=== PATIENT | female | born 1960 | race African-American/Black ===

== ENCOUNTER 2018-05-08 06:21 | Inpatient (IN) | payer SELFPAY ==
[~2018-05-08] VITALS: Ht 165.1 cm; Wt 70.3 kg
[2018-05-08] VITALS (75 sets, daily range): BP systolic 49–195; BP diastolic 25–122
[2018-05-08] MEDS ORDERED: MIDAZOLAM HCL 50 MG in DEXTROSE 5% WATER 40 ML IV ONE (06:30)
[2018-05-08] MEDS ORDERED: FENTANYL CITRATE/PF 50MCG/ML 2ML VIAL IV ONE (06:30)
[2018-05-08] MEDS ORDERED: NOREPINEPHRINE 4 MG in DEXT 5% WATER 250 ML IV STA (07:27)
[2018-05-08] MEDS ORDERED: SODIUM CHLORIDE 0.9% 1,000 ML IV ONE (07:27)
[2018-05-08] MEDS ORDERED: NOREPINEPHRINE 4MG/250ML PMX 250 ML IV PRN ×2 (07:33)
[2018-05-08 07:42] LABS: BASOPHILS % 0.5 % (0.0-2.0); EOSINOPHILS % 1.2 % (0.0-5.0); HEMATOCRIT. 36.6 % (36.0-48.0); HEMOGLOBIN. 11.3 g/dL (12.0-16.0); LYMPHOCYTES % 33.4 % (20.0-50.0); MEAN CORPUSCULAR HEMOGLOBIN 27.8 pg (28.0-32.0); MEAN PLATELET VOLUME 9.2 fl (7.4-10.4); MONOCYTES % 1.2 % (2.0-8.0); NEUTROPHILS % 63.7 % (40.0-76.0); PLATELET 114 x1000/uL (130-400); RED BLOOD CELL COUNT 4.06 mill/uL (4.2-5.4); RED CELL DISTRIBUTION WIDTH 14.4 % (11.6-14.6)
[2018-05-08 07:47] LABS: CLARITY URINE CLEAR (CLEAR); COLOR URINE YELLOW (YELLOW); KETONES URINE NEGATIVE (NEGATIVE); LEUKOCYTE ESTERASE URINE NEGATIVE (NEGATIVE); NITRITE URINE NEGATIVE (NEGATIVE); OCCULT BLOOD URINE NEGATIVE (NEGATIVE); PROTEIN URINE 1+ (NEGATIVE); SPECIFIC GRAVITY URINE 1.021 (1.005-1.030)
[2018-05-08 07:49] LABS: INR 1.1; PROTHROMBIN TIME 10.8 sec (9.1-11.1)
[2018-05-08 07:52] LABS: CHLORIDE 107 mEq/L (98-107)
[2018-05-08 08:28] LABS: BG BASE EXCESS -9.7 mmol/L (-2.0-2.0); BG CARBOXYHEMOGLOBIN 3.4 % (0.5-1.5); BG DEOXYHEMOGLOBIN 5.1 % (0.0-5.0); BG FRACTION INSPIRED OXYGEN 100; BG HCO3 ACT 17.8 mmol/L (22.0-26.0); BG METHEMOGLOBIN 0.2 % (0.0-1.5); BG OXYGEN SATURATION 94.7 % (92.0-98.5); BG OXYHEMOGLOBIN 91.3 % (94.0-97.0); BG PCO2 44.7 mmHg (35.0-45.0); BG PH 7.217 (7.350-7.450); BG PO2 86.6 mmHg (75.0-100.0); BG SAMPLE SITE LEFT BRACHIAL; BG TIDAL VOLUME(mL) 450 mL; BG TOTAL HEMOGLOBIN 13.2 g/dL (12.0-18.0); BG VENT MODE VENT - A/C; BG VENT RATE 14 set
[2018-05-08] MEDS ORDERED: DEXTROSE 50% WATER 50ML SYRINGE IV PRN (08:30)
[2018-05-08] MEDS ORDERED: AMIODARONE HCL 900 MG in DEXT 5% WATER 500 ML IV ONE (08:45)
[2018-05-08] MEDS ORDERED: NOREPINEPHRINE 4 MG in DEXT 5% WATER 246 ML IV PRN (08:45)
[2018-05-08] MEDS ORDERED: DOPAMINE 400MG/250ML PREMIX 250 ML IV ONE ×3 (08:59→16:43)
[2018-05-08 09:00] LABS: CREATINE KINASE MB FRACTION 64.5 ng/mL (0.5-3.6)
[2018-05-08] MEDS: BLOOD SUGAR DIAGNOSTIC STRIP TEST SCH ×4 (09:00→21:00)
[2018-05-08] MEDS: PANTOPRAZOLE SODIUM 40 MG/VIAL IV SCH (11:28)
[2018-05-08] MEDS: PIPERACILLIN/TAZ 3.375G PREMIX 50 ML IV SCH ×2 (11:29→17:43)
[2018-05-08] MEDS ORDERED: AMIODARONE HCL 900 MG in DEXT 5% WATER 482 ML IV SCH (11:30)
[2018-05-08] MEDS ORDERED: IPRATROPIUM/ALBUTEROL 0.5-3(2.5)MG/3ML NEB HHN SCH (12:00)
[2018-05-08 12:21] LABS: HEPATITIS B SURFACE ANTIGEN NEGATIVE
[2018-05-08 12:48] LABS: HEPATITIS A AB IGM NEGATIVE (NEGATIVE)
[2018-05-08] MEDS: INSULIN LISPRO 100 UNITS/ML SUBCUT SCH ×3 (13:07→21:00)
[2018-05-08 13:49] LABS: BG BASE EXCESS -9.2 mmol/L (-2.0-2.0); BG DEOXYHEMOGLOBIN 0.9 % (0.0-5.0); BG FRACTION INSPIRED OXYGEN 90; BG HCO3 ACT 16.9 mmol/L (22.0-26.0); BG METHEMOGLOBIN 0.2 % (0.0-1.5); BG OXYGEN SATURATION 99.1 % (92.0-98.5); BG OXYHEMOGLOBIN 97.9 % (94.0-97.0); BG PCO2 37.3 mmHg (35.0-45.0); BG PH 7.273 (7.350-7.450); BG PO2 167.6 mmHg (75.0-100.0); BG SAMPLE SITE RIGHT BRACHIAL; BG TIDAL VOLUME(mL) 500 mL; BG VENT MODE VENT - A/C; BG VENT RATE 18 set
[2018-05-08] MEDS ORDERED: SODIUM BICARBONATE 8.4% 1 MEQ/ML 50ML SYR IV NR (14:15)
[2018-05-08] MEDS: NOREPINEPHRINE 4 MG in DEXT 5% WATER 246 ML IV PRN (14:23)
[2018-05-08] MEDS ORDERED: EPINEPHRINE 0.1MG/ML (1:10,000) 10ML SYR ONE ×3 (14:39→14:42)
[2018-05-08] MEDS ORDERED: ATROPINE SULFATE 1MG/10ML SYR ONE (14:39)
[2018-05-08] MEDS ORDERED: PHENYLEPHRINE 40 MG in DEXT 5% WATER 246 ML IV PRN (15:00)
[2018-05-08] MEDS: IPRATROPIUM BROMIDE (0.02%) 0.5MG/2.5ML NEB HHN SCH ×2 (16:22→21:05)
[2018-05-08] MEDS: DOPAMINE 400MG/250ML PREMIX 250 ML IV PRN (17:04)
[2018-05-09] VITALS (93 sets, daily range): BP systolic 51–143; BP diastolic 26–94
[2018-05-09] MEDS: DOPAMINE 400MG/250ML PREMIX 250 ML IV PRN ×3 (00:10→15:10)
[2018-05-09] MEDS: PIPERACILLIN/TAZ 3.375G PREMIX 50 ML IV SCH ×3 (00:12→12:14)
[2018-05-09] MEDS: IPRATROPIUM BROMIDE (0.02%) 0.5MG/2.5ML NEB HHN SCH ×5 (00:18→16:01)
[2018-05-09 05:34] LABS: BASOPHILS % 0.2 % (0.0-2.0); HEMATOCRIT. 38.3 % (36.0-48.0); HEMOGLOBIN. 12.7 g/dL (12.0-16.0); MEAN CORPUSCULAR HEMOGLOBIN 28.1 pg (28.0-32.0); MEAN CORPUSCULAR VOLUME 84.9 fL (81.0-99.0); MEAN PLATELET VOLUME 9.1 fl (7.4-10.4); MONOCYTES % 5.4 % (2.0-8.0); NEUTROPHILS % 80.4 % (40.0-76.0); PLATELET 131 x1000/uL (130-400); RED BLOOD CELL COUNT 4.51 mill/uL (4.2-5.4); RED CELL DISTRIBUTION WIDTH 13.7 % (11.6-14.6)
[2018-05-09 05:37] LABS: CHLORIDE 109 mEq/L (98-107)
[2018-05-09] MEDS: IPRATROPIUM/ALBUTEROL 0.5-3(2.5)MG/3ML NEB HHN PRN ×3 (07:56→21:35)
[2018-05-09] MEDS: NOREPINEPHRINE 4 MG in DEXT 5% WATER 246 ML IV PRN ×2 (08:05→17:43)
[2018-05-09] MEDS: BLOOD SUGAR DIAGNOSTIC STRIP TEST SCH ×4 (08:15→21:11)
[2018-05-09] MEDS: PANTOPRAZOLE SODIUM 40 MG/VIAL IV SCH (08:15)
[2018-05-09] MEDS: INSULIN LISPRO 100 UNITS/ML SUBCUT SCH ×4 (08:15→21:16)
[2018-05-09 09:32] LABS: BG BASE EXCESS 3.7 mmol/L (-2.0-2.0); BG CARBOXYHEMOGLOBIN 0.8 % (0.5-1.5); BG DEOXYHEMOGLOBIN 0.5 % (0.0-5.0); BG FRACTION INSPIRED OXYGEN 70; BG HCO3 ACT 24.4 mmol/L (22.0-26.0); BG METHEMOGLOBIN 0.1 % (0.0-1.5); BG OXYGEN SATURATION 99.5 % (92.0-98.5); BG OXYHEMOGLOBIN 98.6 % (94.0-97.0); BG PCO2 26.8 mmHg (35.0-45.0); BG PH 7.578 (7.350-7.450); BG SAMPLE SITE LEFT BRACHIAL; BG TIDAL VOLUME(mL) 500 mL; BG TOTAL HEMOGLOBIN 13.9 g/dL (12.0-18.0); BG VENT MODE VENT - A/C; BG VENT RATE 18 set
[2018-05-09] MEDS: SODIUM CHLORIDE 0.45% 1,000 ML IV SCH (13:23)
[2018-05-09] MEDS: ACETAMINOPHEN 650MG/20.3ML UDC PO PRN ×2 (13:26→23:52)
[2018-05-09] MEDS ORDERED: PIPERACILLIN/TAZ 3.375G PREMIX 50 ML IV SCH (18:00)
[2018-05-09] MEDS ORDERED: PIPERACILLIN/TAZ 2.25G PREMIX 50 ML IV SCH (23:01)
[2018-05-09] MEDS: PIPERACILLIN/TAZ 2.25G PREMIX 50 ML IV SCH (23:45)
[2018-05-10] VITALS (172 sets, daily range): BP systolic 46–206; BP diastolic 33–130
[2018-05-10] MEDS: IPRATROPIUM BROMIDE (0.02%) 0.5MG/2.5ML NEB HHN SCH ×6 (00:15→21:05)
[2018-05-10] MEDS: DOPAMINE 400MG/250ML PREMIX 250 ML IV PRN (01:03)
[2018-05-10] MEDS: NOREPINEPHRINE 4 MG in DEXT 5% WATER 246 ML IV PRN (04:23)
[2018-05-10] MEDS: SODIUM CHLORIDE 0.45% 1,000 ML IV SCH ×2 (04:26→17:29)
[2018-05-10 05:01] LABS: BASOPHILS % 0.5 % (0.0-2.0); HEMATOCRIT. 36.5 % (36.0-48.0); HEMOGLOBIN. 11.8 g/dL (12.0-16.0); LYMPHOCYTES % 9.1 % (20.0-50.0); MEAN CORPUSCULAR HEMOGLOBIN 27.8 pg (28.0-32.0); MEAN CORPUSCULAR VOLUME 85.8 fL (81.0-99.0); MEAN PLATELET VOLUME 9.9 fl (7.4-10.4); MONOCYTES % 4.6 % (2.0-8.0); NEUTROPHILS % 85.8 % (40.0-76.0); PLATELET 94 x1000/uL (130-400); RED BLOOD CELL COUNT 4.25 mill/uL (4.2-5.4); RED CELL DISTRIBUTION WIDTH 14.2 % (11.6-14.6)
[2018-05-10 05:10] LABS: CHLORIDE 105 mEq/L (98-107)
[2018-05-10 05:22] LABS: PHOSPHORUS 3.8 mg/dL (2.5-4.9)
[2018-05-10] MEDS: PIPERACILLIN/TAZ 2.25G PREMIX 50 ML IV SCH ×3 (06:23→22:32)
[2018-05-10] MEDS ORDERED: POTASSIUM CHLORIDE INJ 40 MEQ in DEXT 5%/0.9% NACL 1,000 ML IV ONE (06:45)
[2018-05-10] MEDS: BLOOD SUGAR DIAGNOSTIC STRIP TEST SCH ×3 (07:50→17:26)
[2018-05-10] MEDS ORDERED: POTASSIUM CHLORIDE INJ 40 MEQ in DEXT 5% WATER 250 ML IV NR ×2 (08:00→13:00)
[2018-05-10 08:20] LABS: BG BASE EXCESS 2.4 mmol/L (-2.0-2.0); BG CARBOXYHEMOGLOBIN 1.7 % (0.5-1.5); BG DEOXYHEMOGLOBIN 1.2 % (0.0-5.0); BG FRACTION INSPIRED OXYGEN 40; BG HCO3 ACT 26.4 mmol/L (22.0-26.0); BG METHEMOGLOBIN 0.4 % (0.0-1.5); BG OXYGEN SATURATION 98.8 % (92.0-98.5); BG OXYHEMOGLOBIN 96.7 % (94.0-97.0); BG PCO2 38.8 mmHg (35.0-45.0); BG PH 7.451 (7.350-7.450); BG PO2 143.7 mmHg (75.0-100.0); BG SAMPLE SITE RIGHT RADIAL; BG TIDAL VOLUME(mL) 500 mL; BG TOTAL HEMOGLOBIN 11.5 g/dL (12.0-18.0); BG VENT MODE VENT - A/C; BG VENT RATE 14 set
[2018-05-10] MEDS: PANTOPRAZOLE SODIUM 40 MG/VIAL IV SCH (08:48)
[2018-05-10] MEDS: INSULIN LISPRO 100 UNITS/ML SUBCUT SCH ×3 (08:51→17:36)
[2018-05-10] MEDS ORDERED: VANCOMYCIN 1500MG in DEXTROSE 5% WATER 250ML IV NR (12:00)
[2018-05-10] MEDS: NOREPINEPHRINE 16 MG in DEXT 5% WATER 234 ML IV PRN (13:27)
[2018-05-11] VITALS (70 sets, daily range): BP systolic 55–136; BP diastolic 33–86
[2018-05-11] MEDS: IPRATROPIUM BROMIDE (0.02%) 0.5MG/2.5ML NEB HHN SCH ×4 (00:44→11:23)
[2018-05-11] MEDS: INSULIN LISPRO 100 UNITS/ML SUBCUT SCH ×2 (01:38→05:26)
[2018-05-11] MEDS: NOREPINEPHRINE 16 MG in DEXT 5% WATER 234 ML IV PRN (01:38)
[2018-05-11] MEDS: PIPERACILLIN/TAZ 2.25G PREMIX 50 ML IV SCH (05:06)
[2018-05-11] MEDS: SODIUM CHLORIDE 0.45% 1,000 ML IV SCH (05:07)
[2018-05-11] MEDS: BLOOD SUGAR DIAGNOSTIC STRIP TEST SCH ×2 (05:22)
[2018-05-11 05:23] LABS: BASOPHILS % 0.3 % (0.0-2.0); EOSINOPHILS % 0.1 % (0.0-5.0); HEMATOCRIT. 33.1 % (36.0-48.0); HEMOGLOBIN. 10.6 g/dL (12.0-16.0); LYMPHOCYTES % 9.4 % (20.0-50.0); MEAN CORPUSCULAR HEMOGLOBIN 27.6 pg (28.0-32.0); MEAN CORPUSCULAR VOLUME 86.1 fL (81.0-99.0); MEAN PLATELET VOLUME 10.4 fl (7.4-10.4); MONOCYTES % 4.5 % (2.0-8.0); NEUTROPHILS % 85.7 % (40.0-76.0); PLATELET 78 x1000/uL (130-400); RED BLOOD CELL COUNT 3.84 mill/uL (4.2-5.4); RED CELL DISTRIBUTION WIDTH 14.4 % (11.6-14.6)
[2018-05-11 05:25] LABS: CHLORIDE 105 mEq/L (98-107)
[2018-05-11 05:33] LABS: PHOSPHORUS 4.7 mg/dL (2.5-4.9)
[2018-05-11 08:51] LABS: BG BASE EXCESS 0.6 mmol/L (-2.0-2.0); BG CARBOXYHEMOGLOBIN 1.1 % (0.5-1.5); BG DEOXYHEMOGLOBIN 0.9 % (0.0-5.0); BG FRACTION INSPIRED OXYGEN 40; BG HCO3 ACT 25.4 mmol/L (22.0-26.0); BG METHEMOGLOBIN 0.4 % (0.0-1.5); BG OXYGEN SATURATION 99.1 % (92.0-98.5); BG OXYHEMOGLOBIN 97.6 % (94.0-97.0); BG PCO2 41.1 mmHg (35.0-45.0); BG PH 7.408 (7.350-7.450); BG PO2 165.4 mmHg (75.0-100.0); BG SAMPLE SITE RIGHT RADIAL; BG TIDAL VOLUME(mL) 500 mL; BG TOTAL HEMOGLOBIN 10.9 g/dL (12.0-18.0); BG VENT MODE VENT - A/C; BG VENT RATE 12 set
[2018-05-11] MEDS: PANTOPRAZOLE SODIUM 40 MG/VIAL IV SCH (09:16)
== END 2018-05-11 17:20 | disposition expired | DRG 720 ==
LOC: ER 06:21 → CVICU 08:13 → EDBEDREQTM 08:15 → EDBEDREQ 08:15 → CANRESERV 08:23 → ENRESERV 08:23
PROVIDERS: ADMIT Internal Medicine; ATTEND Family Medicine
PROC: 5A1945Z Respiratory Ventilation, 24-96 Consecutive Hours (ICD-10-PCS; principal; 2018-05-08)
PROC: 0BH17EZ Insertion of Endotracheal Airway into Trachea, Via Natural or Artificial Opening (ICD-10-PCS; 2018-05-08)
DX: A41.9 Sepsis, unspecified organism (principal); I21.4 Non-ST elevation (NSTEMI) myocardial infarction; I46.9 Cardiac arrest, cause unspecified; E43 Unspecified severe protein-calorie malnutrition; J84.9 Interstitial pulmonary disease, unspecified; I60.9 Nontraumatic subarachnoid hemorrhage, unspecified; G93.1 Anoxic brain damage, not elsewhere classified; J96.01 Acute respiratory failure with hypoxia; D69.6 Thrombocytopenia, unspecified; G93.41 Metabolic encephalopathy; E87.0 Hyperosmolality and hypernatremia; D64.9 Anemia, unspecified; F12.90 Cannabis use, unspecified, uncomplicated; F17.210 Nicotine dependence, cigarettes, uncomplicated; I10 Essential (primary) hypertension; R73.9 Hyperglycemia, unspecified; N17.0 Acute kidney failure with tubular necrosis; I25.5 Ischemic cardiomyopathy; I27.81 Cor pulmonale (chronic); K72.00 Acute and subacute hepatic failure without coma; E87.4 Mixed disorder of acid-base balance; R74.0 Nonspecific elevation of levels of transaminase and lactic acid dehydrogenase [LDH]; E87.6 Hypokalemia; I95.9 Hypotension, unspecified; I25.2 Old myocardial infarction; Z82.49 Family history of ischemic heart disease and other diseases of the circulatory system
CPT/HCPCS: 36415; 36556; 36600; 43760; 51702; 71045; 76700; 78610; 80202; 82248; 82375; 82550; 82553; 82805; 82962; 83036; 83605; 83735; 83880; 84100; 84134; 84145; 84484; 86705; 86709; 86803; 87070; 87077; 87186; 87340; 87493; 87804; 93005; 93306; 93970; 94002; 94003; 94640; 96365; 99291; A9512; C9113; J0282; J0461; J1265; J1815; J2250; J2370; J2543; J3010; J3370; J3480; J3490; J7030; J7040; J7060; J7620